=== PATIENT | female | born 1990 | race Caucasian/White ===

== ENCOUNTER → 2018-04-23 11:45 | Observation (INO) ==
[2018-04-23 11:10] LABS: Bilirubin,Urine Negative (Negative); Blood,Urine Negative (Negative); Clarity,Urine Cloudy (Clear); Color,Urine Dark Yellow (Yellow); Glucose,Urine (UA) Normal (Normal); Ketones,Urine Negative (Negative); Leukocyte Esterase,Urine Moderate (Negative); Nitrite,Urine Negative (Negative); PH,Urine 6.5 pH Units (5.0-8.0); Protein,Urine Trace mg/dL (Neg-Trace); Specific Gravity,Urine 1.022 (1.010-1.025); Urobilinogen,Urine Normal (Normal)
[2018-04-23 11:12] LABS: Hyaline Casts,Urine Few per lpf (None-Few); Squamous Epithelial Cell,Urine Many per lpf (None-Few)
[2018-04-23 11:24] LABS: Bacteria,Urine Few per hpf (None-Few)
--- NOTE | 2018-04-23 11:41 | Discharge Summary ---
Date of Encounter: 04/23/18 Time of Encounter: 11:40 - Discharge Diagnosis (1) 30 weeks gestation of Priority: Primary Status: Acute Comments: admitted for observation (2) Fall Priority: Secondary Status: Acute Comments: Patient fell yesterday Qualifiers: Encounter type: initial encounter Qualified Code(s): W19.XXXA - Unspecified fall, initial encounter (3) NST (non-stress test) reactive on surveillance Priority: Secondary Status: Acute Comments: baseline 125 bpm moderate variability +15x15 accels no decels noted. No contractions. Cat. 1 tracing - Discharge Medications Home Medications: Vit No.129/Iron/FA [ One Daily Tablet] 1 each PO DAILY [History] Acetaminophen [Tylenol] 500 mg PO Q6HR PRN #20 tablet 02/05/18 [Rx] Ferrous Sulfate 325 mg PO DAILY 04/23/18 [History] Allergies/Adverse Reactions: 3 Allergy/AdvReac Type Severity Reaction Status Date / Time cephalexin [From Keflex] AdvReac Nausea Verified 02/12/18 10:25 Data Procedures and tests throughout hospitalization: Laboratory Tests 04/23/18 10:55 Urine Color Dark Yellow Urine Clarity Cloudy A Urine pH 6.5 Ur Specific [place] 1.022 Urine Protein Trace Urine Glucose (UA) Normal Urine Ketones Negative Urine Blood Negative Urine Nitrite Negative Urine Bilirubin Negative Urine Urobilinogen Normal Ur Leukocyte Esterase Moderate H Urine Microscopic WBC 5-15 H Ur Squamous Epith Cells Many H Urine Bacteria Few Hyaline Casts Few Ur Culture Indicated? NO. A Labs on day of discharge: Labs from last 24 hours 04/23/18 10:55 Urine Color Dark Yellow Urine Clarity Cloudy A Urine pH 6.5 Ur Specific [place] 1.022 Urine Protein Trace Urine Glucose (UA) Normal Urine Ketones Negative Urine Blood Negative Urine Nitrite Negative Urine Bilirubin Negative Urine Urobilinogen Normal Ur Leukocyte Esterase Moderate H Urine Microscopic WBC 5-15 H Ur Squamous Epith Cells Many H Urine Bacteria Few Hyaline Casts Few Ur Culture Indicated? NO. 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 Patient denies any LOF, VB or contractions. Patient reports +FM. Patient reports taking Tylenol around 0600. Time Attestation: Total time spent providing and/or coordinating discharge services: Time Spent: Less than 30 minutes Exam - Constitutional General appearance IM: A&O X 3, pleasant, answers questions appropriately - Respiratory Respiratory exam: Present: CTAB - Cardiovascular Cardiovascular exam IM: Present: RRR, +S1, +S2 - GI/Abdominal GI/Abdominal exam IM: normal bowel sounds - Extremities Exam Extremities exam IM: Present: full ROM, normal capillary refill, normal inspection - Neurological Exam Neurological exam: alert, oriented X3, reflexes normal - Other Additional findings: No bruising noted - VTE Reasons for not Prescribing Prophylaxis: Treatment not Indicated - Low risk for VTE
[~2018-04-23 11:45] MED LIST: Acetaminophen 325 MG TABLET PO ONE
[2018-04-23 12:53] LABS: Amphetamine Screen,Urine Negative ng/mL (Cutoff=1000); Barbiturate Screen,Urine Negative ng/mL (Cutoff=200); Benzodiazepines Screen,Urine Negative ng/mL (Cutoff=200); Cannabinoid Screen,Urine Negative ng/mL (Cutoff = 50); Cocaine Screen,Urine Negative ng/mL (Cutoff= 300); Opiate Screen,Urine Negative ng/mL (Cutoff=300); Phencyclidine Screen,Urine Negative ng/mL (Cutoff=25)
== END | disposition home or self-care (01) ==
LOC: 1NENULAB
PROVIDERS: ADMIT Student in an Organized Health Care Education/Training Program; ATTEND Student in an Organized Health Care Education/Training Program

== ENCOUNTER 2018-07-02 10:50 | Inpatient (IN) ==
[2018-07-02] MEDS ORDERED: Naloxone 0.4 MG/ML INJ IVP PRN (11:32)
[2018-07-02] MEDS ORDERED: Ondansetron 4 MG/2 ML VIAL IVP PRN (11:32)
[2018-07-02] MEDS ORDERED: Famotidine 20 MG/2 ML VIAL IVP PRN (11:32)
[2018-07-02] MEDS ORDERED: *HR* Nalbuphine 10 MG/ML AMPUL IVP PRN (11:32)
[2018-07-02] MEDS ORDERED: Ringers Solution, Lactated 1,000 ML IVC SCH (11:45)
--- NOTE | 2018-07-02 12:20 | OB/GYN History & Physical ---
Date of Encounter: 07/02/18 Time of Encounter: 12:19 Assessment and Plan (1) 40 weeks gestation of Current visit: Yes Status: Acute (2) Rh negative status during Current visit: Yes Status: Acute Rhogam evaluation immediately Qualifiers: Trimester: third trimester Qualified Code(s): O09.893 - Supervision of other high risk pregnancies, third trimester; Z67.91 - Unspecified blood type, Rh negative (3) Intrauterine Current visit: Yes Status: Acute Admit to L&D for induction of labor Labs-CBC and clot to hold Continuous electronic monitoring Pain management plan is natural childbirth Anticipate Dr. Garcia is OB production control planner and is available as needed (4) PENNY (amniotic fluid index) decreased Current visit: Yes Status: Acute History of Present Illness Chief complaint: Low PENNY HPI: Ms. Tirado is a 28 year old female 012 at 40 weeks 0 days gestation with an estimated date of of 07/02/18 dated by initial exam. She presents from her clinic visit today status post nonreactive NST and follow- up BPP with PENNY of 3 cm. She endorses good movement and denies contractions, leakage of fluid, vaginal bleeding. She has been seen by the midwives throughout her . records are available electronically and have been reviewed. Her has been uncomplicated. Labs: A- GBS- GC/CL- HIV- Hep B- Varicella immune Rubella immune Past Med Surg Social Fam HX - Past Medical History Medical history: no medical history Psychiatric history: no psych history - Past Surgical History Surgical History: no surgical history - Social History Smoking Status: Current every day smoker Smokeless Tobacco Status: No Alcohol use: none Drug use: none - Family History Mother Adopted: No Family Member Ethnicity: Non- Living Status: Still Living Hx Family Cardiac Disorders: No Hx Family Respiratory Disorders: No Hx Family Cancer: No Hx Family GI Disorders: No Hx Family Endocrine Disorder: No Hx Family Neuromuscular Disorders: No Hx Family Neurologic Disorders: No Hx Family HEENT Disorders: No Hx Family Autoimmune Disorders: No Obstetrical History - Pregnancies : 4 Para: 2 Term: 2 (# 2: 11/2013-baby boy-vaginal -6lbs 5oz; # 3 08/04/16,, normal spontaneous vaginal delivery (), weight:6lbs 12 ozs, female Tao, 39 weeks) : 0 Ab's: 1 (# 1: [id number]) Livin Medications and Allergies Vit No.129/Iron/FA [ One Daily Tablet] 1 each PO DAILY [History] Acetaminophen [Tylenol] 500 mg PO Q6HR PRN #20 tablet 02/05/18 [Rx] Ferrous Sulfate 325 mg PO DAILY 04/23/18 [History] 3 Allergy/AdvReac Type Severity Reaction Status Date / Time cephalexin [From Keflex] AdvReac Nausea Verified 02/12/18 10:25 Review of System OB All systems PM: reviewed and no additional remarkable complaints except as stated Exam - Constitutional Constitutional: well developed, well nourished, no acute distress, average body habitus - HEENT HEENT: Normocephaly, Mucus Membranes Moist - Neck Neck exam: full ROM - Lungs Respiratory exam: CTAB - Cardiovascular Cardiovascular exam: RRR, +S1, +S2 - Breasts Breast: bilateral: normal - Abdomen Abdomen: Present: bowel sounds normal, gravid, non tender - Extremities Extremities exam: normal capillary refill, normal inspection, pedal edema, radial pulses palpable and symmetrical - Vulva Vulva: bilateral: normal - Vagina Vagina: Present: normal moisture - Cervix Dilation: 5 Effacement: 70 Station: -2 - Uterus Uterus exam: Present: normal size, normal contour - Anus/Rectum Anus/Rectum: Present: normal perianal skin Results All other labs normal. - VTE Reasons for not Prescribing Prophylaxis: Treatment not Indicated - Low risk for VTE
[2018-07-02 12:47] LABS: Basophils % 0.3 %; Eosinophils # 0.1 K/mcL (0.0-0.6); Eosinophils % 0.9 %; Hemoglobin 12.7 g/dL (11.5-15.4); Immature Granulocytes % 0.7 % (0-4); Lymphocytes # 2.2 K/mcL (0.6-4.6); Lymphocytes % 20.7 %; Mean Corpuscular HGB Conc 35.3 g/dL (31.6-35.5); Mean Corpuscular Hemoglobin 32.9 pg (28.0-33.3); Mean Corpuscular Volume 93.3 fL (83.0-100.0); Mean Platelet Volume 11.6 fL (9.4-12.4); Monocytes # 0.5 K/mcL (0.0-1.3); Monocytes % 4.4 %; Neutrophils # 7.8 K/mcL (1.6-8.9); Platelet Count 190 K/mcL (140-400); Red Blood Count 3.86 M/mcL (3.82-4.97)
[2018-07-02 13:17] LABS: Amphetamine Screen,Urine Negative ng/mL (Cutoff=1000); Barbiturate Screen,Urine Negative ng/mL (Cutoff=200); Benzodiazepines Screen,Urine Negative ng/mL (Cutoff=200); Cannabinoid Screen,Urine Negative ng/mL (Cutoff = 50); Cocaine Screen,Urine Negative ng/mL (Cutoff= 300); Opiate Screen,Urine Negative ng/mL (Cutoff=300); Phencyclidine Screen,Urine Negative ng/mL (Cutoff=25)
[2018-07-02] MEDS ORDERED: miSOPROStol 25 MCG TABLET PO PRN (14:25)
[2018-07-02] MEDS ORDERED: Lidocaine 1% 20 ML MDV INFILT PRN (15:51)
[2018-07-02] MEDS ORDERED: Oxytocin 20 units/ LR 1000 mL 20 UNIT/1,000 ML BAG IVC SCH ×2 (16:00→22:37)
[2018-07-02] MEDS ORDERED: Benzocaine/Menthol 56 GM AEROSOL SPRAY TP PRN ×2 (18:54→22:37)
[2018-07-02] MEDS ORDERED: Benzocaine/Menthol 56 GM AEROSOL SPRAY TP ONE (18:54)
--- NOTE | 2018-07-02 19:13 | OB/GYN Procedure Note ---
Delivery - Delivery Date: 07/02/18 Provider: Gaviota Grimaldo Intrapartum events: none Delivery induction: oxytocin Delivery monitor: external FHT, external uterine Quantitated Blood Loss: 150 - Infant (s) Infant A Delivery Date: 07/02/18 Infant Delivery Time: 18:25 Presentation: vertex Position: TIBURCIO Route of delivery: Gender: Female Viability: Viable Pounds: 7 Ounces: 0 Weight Gram: 3.18 kg at 1 minute: 8 at 5 mins: 9 Shoulder Dystocia: not encountered Specimens collected: cord blood Placenta: spontaneous Cord: nuchal cord, 3 umbilical vessels, nuchal reduced - Repair Episiotomy: none Laceration Description: None - Complications Delivery complications: none Delivery comments: This is a 28-year-old G4 now P3 who was admitted for induction of labor secondary to oligohydramnios with PENNY of 3 cm. She progressed with Pitocin augmentation to the second stage of labor. Under maternal effort she pushed for about 20 minutes. She delivered a viable female infant "TIBURCIO Juarez over an intact perineum. Infant was placed on the maternal abdomen where the mouth and nares were bulb suctioned. The cord was clamped by camera repair technician and cut by FOB after pulsations ceased. A nuchal cord 1 was identified. The nuchal cord was reduced prior to delivery of the shoulders and body. scores were 8 at 1 minute and 9 at 5 minutes. The weighed 7lb (3180g). The placenta delivered (Maria), intact, with a three-vessel cord. Inspection revealed no perineal, sidewall, or cervical lacerations. The uterus was firm with no active bleeding. The repair EBL was 150 mL. Placenta and umbilical artery blood gases were not sent. There were no complications during the procedure. Mom and baby are cuddling following delivery. - Disposition Mom disposition: stable in LDR [place] disposition: stable in LDR
[2018-07-02] MEDS ORDERED: Acetaminophen 325 MG TABLET PO PRN (22:37)
[2018-07-02] MEDS ORDERED: Ibuprofen 600 MG TABLET PO PRN (22:37)
[2018-07-02] MEDS ORDERED: Rho Immune Globulin 1,500 UNIT SYRINGE IM PRN (22:37)
[2018-07-03 08:15] VITALS: BP 128/75
--- NOTE | 2018-07-03 08:26 | Discharge Summary ---
Date of Encounter: 07/03/18 Time of Encounter: 09:20 - Discharge Diagnosis (1) Vaginal delivery Priority: Primary Status: Acute Comments: Pt meeting all milestones. She denies complaints at this time. - Discharge Medications Prescriptions: Ibuprofen [Motrin] 600 mg PO Q6HR PRN #30 tablet PRN Reason: Cramping Docusate [Colace] 100 mg PO BID #60 capsule Home Medications: Vit No.129/Iron/FA [ One Daily Tablet] 1 each PO DAILY [History] Benzocaine/Menthol [place] [Dermoplast [place]] 1 appl TP QID PRN #0 aerosol [Rx] Docusate [Colace] 100 mg PO BID #60 capsule 07/03/18 [Rx] Ibuprofen [Motrin] 600 mg PO Q6HR PRN #30 tablet 07/03/18 [Rx] Allergies/Adverse Reactions: 3 Allergy/AdvReac Type Severity Reaction Status Date / Time cephalexin [From Keflex] AdvReac Nausea Verified 02/12/18 10:25 Data Procedures and tests throughout hospitalization: Laboratory Tests 07/02/18 07/02/18 07/02/18 12:22 12:22 19:27 WBC 10.7 RBC 3.86 Hgb 12.7 Hct 36.0 MCV 93.3 MCH 32.9 MCHC 35.3 RDW 13.0 Plt Count 190 MPV 11.6 Immature Gran % 0.7 Seg Neutrophils % 73.0 Lymphocytes % 20.7 Monocytes % 4.4 Eosinophils % 0.9 Basophils % 0.3 Neutrophils # 7.8 Lymphocytes # 2.2 Monocytes # 0.5 Eosinophils # 0.1 Basophils # 0.0 Urine Opiates Screen Negative Ur Barbiturates Screen Negative Ur Phencyclidine Scrn Negative Ur Amphetamines Screen Negative U Benzodiazepines Scrn Negative Urine Cocaine Screen Negative U Marijuana (THC) Screen Negative Ur Drug Screen Interp See Below Baby's Blood Type A RH NEGATIVE Mother's Blood Type A RH NEGATIVE Labs on day of discharge: Labs from last 24 hours 07/02/18 07/02/18 07/02/18 19:27 12:22 12:22 WBC 10.7 RBC 3.86 Hgb 12.7 Hct 36.0 MCV 93.3 MCH 32.9 MCHC 35.3 RDW 13.0 Plt Count 190 MPV 11.6 Immature Gran % 0.7 Seg Neutrophils % 73.0 Lymphocytes % 20.7 Monocytes % 4.4 Eosinophils % 0.9 Basophils % 0.3 Neutrophils # 7.8 Lymphocytes # 2.2 Monocytes # 0.5 Eosinophils # 0.1 Basophils # 0.0 Urine Opiates Screen Negative Ur Barbiturates Screen Negative Ur Phencyclidine Scrn Negative Ur Amphetamines Screen Negative U Benzodiazepines Scrn Negative Urine Cocaine Screen Negative U Marijuana (THC) Screen Negative Ur Drug Screen Interp See Below Baby's Blood Type A RH NEGATIVE Mother's Blood Type A RH NEGATIVE Date of admission: 07/02/18 10:50 Primary care physician: PCP NONE Consults: 07/02/18 22:37 Consult to [facility] [CONS] Routine Comment: Vaginal delivery, consult needed Discharging clinician: Nicole Maddox Anticipated date of discharge: 07/03/18 - Patient Status Disposition: Home, Self-Care Condition: Good Functional capacity at discharge: independent ambulation Overall status at discharge: patient is back to baseline - Discharge Instructions Follow Up With: NONE,PCP [Primary Care Provider] - Gaviota Grimaldo [Advanced Practice Nurse] - - Diet and Activity Activity: increase activity as tolerated Diet: regular diet Hospital Course Reason for admission: induction of labor Delivery: Episiotomy: none Laceration: none Other procedures: none complications: none Discharge diagnosis: IUP at term delivered Serafina baby: female Hospital course: Patient is a 28 year-old presenting to [facility] labor and delivery for induction of labor for oligohydramnios at 40weeks+0 days gestation. The patient had an uncomplicated delivery with reduced nuchal cord, there were no noted lacerations or significant hemorrhaging. Patient delivered a viable female infant at 6:25 PM on 07/02/2018. -Upon initial encounter patient is sitting upright in hospital bed, appears to be alert and oriented, is engaged conversation and answers questions appropriately. Speech is fluid and there appear to be no focal neurological defects. -Patient states mom and baby are doing well, baby is feeding regularly with good quantities. The patient states that there has been some difficulty with baby latching to bottle, with regurgitation of formula this morning when feeding child but otherwise denies any difficulties. -Mom states that baby took 2 bottles of 2 ounces last evening with 2 additional feeds overnight of 10 mL and 12 mL respectively. Mom states baby took 30 mL this morning of formula with some degree of regurgitation. -Patient states that she is feeling well, she denies chest pain, shortness of breath, dizziness, or difficulty with ambulation. -The patient states her intent to return home this evening and has no questions or concerns at this time. Time Attestation: Total time spent providing and/or coordinating discharge services: Time Spent: Less than 30 minutes Exam - Constitutional Vitals: Temp Pulse Resp BP Pulse Ox 98.2 F 78 18 128/75 100 07/03/18 08:15 07/03/18 08:15 07/03/18 08:15 07/03/18 08:15 07/03/18 08:15 General appearance IM: cooperative, A&O X 3, pleasant, answers questions appropriately - Respiratory Respiratory exam: Present: CTAB. Absent: accessory muscle use, prolonged expiratory phase, respiratory distress, rhonchi, stridor, wheezes, tachypnea - Cardiovascular Cardiovascular exam IM: Present: RRR, +S1, +S2. Absent: diastolic murmur, gallop, +S3, +S4, systolic murmur - GI/Abdominal GI/Abdominal exam IM: soft - Uterine Tone: Firm Uterus Position: At Umbilicus - Extremities Exam Extremities exam IM: Present: normal inspection - Neurological Exam Neurological exam: alert, CN II-XII intact, oriented X3, no focal deficits - Psychiatric Additional comments: reports good mood - Attending Attestation I have seen and examined pt apart from resident exam. Pt reports feeling well this morning and desires discharge home this evening when baby can go home. She is bottle feeding and reports good mood. Plan for discharge home with motrin and colace. Pt to follow-up in our office in 4 weeks. precautions given.
[2018-07-03] MEDS ORDERED: Prenatal Vit/FA 1 EACH TABLET PO SCH (09:00)
== END 2018-07-03 13:54 | disposition home or self-care (01) | DRG 775 ==
LOC: 1NENULAB 10:50 → 1NENUOBS 21:21
PROVIDERS: ADMIT Advanced Practice Midwife; ATTEND Advanced Practice Midwife

== ENCOUNTER → 2021-08-03 14:56 | Observation (INO) | END | disposition home or self-care (01) | LOC: 1NENULAB | PROVIDERS: ADMIT Registered Nurse; ATTEND Registered Nurse ==

== ENCOUNTER 2021-10-22 06:55 | Inpatient (IN) ==
[~2021-10-22 06:55] MED LIST changes: +*HR* Nalbuphine 10 MG/ML AMPUL IV PRN; -Acetaminophen 325 MG TABLET PO ONE; +Famotidine 20 MG/2 ML VIAL IVP PRN; +Metoclopramide 10 MG/2 ML VIAL IVP PRN; +Naloxone 0.4 MG/ML INJ IVP PRN
[2021-10-22] MEDS ORDERED: EPHEDrine 50 MG/ML VIAL IVP PRN (07:01)
[2021-10-22] MEDS ORDERED: Ringers Solution, Lactated 1,000 ML ONE (07:11)
[2021-10-22] MEDS ORDERED: Epidural Premix (fent/bupiv) 110 ML EP SCH (07:15)
[2021-10-22] MEDS ORDERED: Ringers Solution, Lactated 1,000 ML IVC SCH (07:30)
[2021-10-22 07:32] LABS: Basophils # 0.1 K/mcL (0.0-0.2); Basophils % 0.4 %; Eosinophils # 0.1 K/mcL (0.0-0.6); Eosinophils % 0.6 %; Hematocrit 39.8 % (35.3-44.9); Hemoglobin 13.8 g/dL (11.5-15.4); Immature Granulocytes % 0.8 % (0-4); Lymphocytes # 2.8 K/mcL (0.6-4.6); Lymphocytes % 16.3 %; Mean Corpuscular HGB Conc 34.7 g/dL (31.6-35.5); Mean Corpuscular Hemoglobin 33.3 pg (28.0-33.3); Mean Corpuscular Volume 95.9 fL (83.0-100.0); Mean Platelet Volume 11.4 fL (9.4-12.4); Monocytes # 0.9 K/mcL (0.0-1.3); Monocytes % 5.1 %; Neutrophils # 13.2 K/mcL (1.6-8.9); Platelet Count 226 K/mcL (140-400); Red Blood Count 4.15 M/mcL (3.82-4.97); Red Cell Distribution Width 13.2 % (11.5-14.5); Segmented Neutrophils % 76.8 %; White Blood Count 17.2 K/mcL (4.3-11.1)
[2021-10-22] MEDS ORDERED: Ropivacaine/PF 0.2% 20 ML VIAL EP ONE (07:59)
[2021-10-22] MEDS ORDERED: *HR* FentaNYL (PF) 100 MCG/2 ML VIAL EP ONE (07:59)
[2021-10-22] MEDS ORDERED: *HR* FentaNYL (PF) 100 MCG/2 ML VIAL ONE (08:02)
[2021-10-22] MEDS ORDERED: Ropivacaine/PF 0.2% 20 ML VIAL ONE (08:02)
[2021-10-22] MEDS ORDERED: Bupivacaine-MPF 0.25% 10 ML VIAL ONE (08:05)
[2021-10-22] MEDS ORDERED: Ibuprofen 600 MG TABLET PO PRN (08:53)
[2021-10-22] MEDS ORDERED: Magnesium Oxide 400 MG TABLET PO SCH (09:00)
[2021-10-22] MEDS ORDERED: Cholecalciferol (D-3) 1,000 UNIT (25MCG) TABLET PO SCH (09:00)
[2021-10-22 09:03] LABS: Influenza A PCR Negative (Negative); Influenza B PCR Negative (Negative); Resp. Syncytial Virus PCR Negative (Negative)
[2021-10-22 09:13] LABS: SARS-CoV-2 by PCR (In House) Negative (Negative)
[2021-10-22] MEDS ORDERED: Benzocaine/Menthol 56 GM AEROSOL SPRAY TP PRN (11:58)
[2021-10-22] MEDS ORDERED: Rho Immune Globulin 1,500 UNIT SYRINGE IM PRN (11:58)
[2021-10-22] MEDS ORDERED: *HR* OxyCODONE Immed Rel 5 MG TABLET PO PRN (11:58)
[2021-10-22] MEDS ORDERED: Ondansetron ODT 4 MG TAB.RAPDIS SL PRN (11:58)
[2021-10-22] MEDS ORDERED: Oxytocin 20 units/ LR 1000 mL 20 UNIT/1,000 ML BAG IVC SCH (11:58)
[2021-10-22] MEDS: Ibuprofen 600 MG TABLET PO SCH ×2 (15:27→17:30)
[2021-10-22] MEDS: Acetaminophen 325 MG TABLET PO SCH ×2 (15:27→17:30)
[2021-10-23] MEDS: Ibuprofen 600 MG TABLET PO SCH ×2 (00:24→06:31)
[2021-10-23] MEDS: Acetaminophen 325 MG TABLET PO SCH ×2 (00:24→06:31)
[2021-10-23 06:37] VITALS: BP 113/72; PULSE 58; TEMP 97.6; O2SAT 99
[2021-10-23] MEDS ORDERED: Prenatal Vit/FA 1 EACH TABLET PO SCH (09:00)
== END 2021-10-23 11:42 | disposition home or self-care (01) | DRG 560 ==
LOC: 1NENULAB → 1NENUOBS 11:55
PROVIDERS: ADMIT Registered Nurse; ATTEND Registered Nurse